=== PATIENT | male | born 1980 | race Caucasian/White ===

== ENCOUNTER 2017-06-07 09:11 | Emergency (ER) | payer MEDICAID ==
[~2017-06-07] VITALS: Ht 175.3 cm; Wt 93.9 kg
[2017-06-07 09:14] VITALS: BP 173/109
[2017-06-07] MEDS ORDERED: OXYcodone/APAP 5/325MG TABLET ONE (09:59)
[2017-06-07] MEDS ORDERED: OXYcodone/APAP 5/325MG TABLET PO ONE (10:00)
[2017-06-07] MEDS ORDERED: PLEASE ENTER ALLERGIES MC SCH (10:00)
== END 2017-06-07 10:08 | disposition home or self-care (01) ==
LOC: ED 10:01
DX: K02.9 Dental caries, unspecified (principal); F17.200 Nicotine dependence, unspecified, uncomplicated
CPT/HCPCS: 99283